=== PATIENT | female | born 1955 | race Two or more races ===

== ENCOUNTER 2016-06-28 00:10 | Inpatient (IN) | payer MEDICAID ==
--- NOTE | 2016-06-27 23:45 | NUR ---
GPS/RN NOTE: ADMITTED FROM [facility], ARRIVED TO THE UNIT AROUND 2345ACCOMPANIED BY PARAMEDICS VIA GURNEY. ADMITTED FOR DTO/DTS. PER HOLD PATIENT HAS HX OF MAJOR DEPRESSIVE DISORDER AND DEMENTIA. PATIENT IS NON COMPLIANT WITH MEDS X7 DAYS, DISORGANIZED, CONFUSED, IRRITABLE, PHYSICALLY ABUSIVE WITH FAMILY. THE 5150 HOLD WAS REVIEWED AND APPEARS TO REFLECT THE PRESENTATION OF THE PATIENT. PATIENT IS ALERT, ORIENTED X1-2, LETHARGIC, SLOW TO RESPOND, UNABLE TO ANSWER QUESTIONS COMPLETELY, CALM, DEPRESSED, COOPERATIVE, UNKEMPT. DISORGANIZED, AMBULATORY. PLACED PATIENT IN BED, COMFORTABLE, NO APPARENT DISTRESS NOTED, RESPIRATION EVEN, BREATHING PATTERN NON-LABORED WITH EQUAL RISE AND FALL OF THE CHEST. PATIENT'S SKIN IS INTACT. PATIENT IS UNDER THE PSYCHIATRIC CARE OF SHAHEEN BLANC, AND UNDER THE MEDICAL CARE OF DR. MCCRACKEN. PATIENT'S BELONGINGS WERE IMVENTORIED AND CHECKED FOR CONTRABAND. PATIENT'S ADVANCED DIRECTIVE PREFERENCE, IMMUNIZATION QUESTIONNAIRE, VALUABLES WERE CHECKED IN TO SAFE, AND NECESSARY PAPERWORK COMPLETED. PATIENT BED LOCKED AND PLACED ON LOWEST POSITION. WILL CONTINUE TO MONITOR Q 15 MINS. TO MAINTAIN SAFETY.
[~2016-06-28] VITALS: Ht 154.9 cm; Wt 46.7 kg
[2016-06-28] MEDS ORDERED: ACETAMINOPHEN 325 MG TABLET PO PRN (03:00)
[2016-06-28] MEDS ORDERED: TEMAZEPAM 7.5 MG CAPSULE PO PRN (03:00)
[2016-06-28] MEDS ORDERED: clonazePAM 0.5 MG TABLET PO PRN (03:00)
[2016-06-28] MEDS ORDERED: MAG HYDROX/AL HYDROX/SIMETH 30 ML UDC PO PRN (03:00)
[2016-06-28] MEDS ORDERED: MAGNESIUM HYDROXIDE 30 ML UDC PO PRN (03:00)
[2016-06-28] MEDS ORDERED: MEMA10TA PO (04:11)
[2016-06-28] MEDS ORDERED: MIRT15TA7 PO (04:11)
[2016-06-28 04:39] VITALS: BP 116/74
--- NOTE | 2016-06-28 07:21 | NUR ---
GPS/RN NOTE: FAMILY NOTIFIED, LEFT A MESSAGE TO DAUGHTER GALILEO THAT HER MOTHER WAS TRANSFERRED LAST NIGHT TO ROOM 200.
[2016-06-28 08:00] VITALS: BP 118/79
[2016-06-28] MEDS: MEMANTINE HCL 5 MG TABLET PO SCH ×2 (10:30→17:00)
[2016-06-28 16:25] VITALS: BP 113/71
[2016-06-28] MEDS: QUETIAPINE FUMARATE 25 MG TABLET PO SCH (17:00)
--- NOTE | 2016-06-28 18:51 | NUR ---
GPS/RN PATIENT REFUSED ALL MEDICATIONS DURING SHIFT, EXPLAINED RISKS AND BENEFITS, WILL CONTINUE TO ENCOURAGE PATIENT TO COMPLY WITH MD REGIMEN.
[2016-06-28 19:51] VITALS: BP 135/90
[2016-06-28] MEDS: MIRTAZAPINE 15 MG TABLET PO SCH (22:00)
--- NOTE | 2016-06-29 00:56 | NUR ---
Pt has been quite confused, emotionally labile, disorganized, crying most of the time, intrusive, difficult to redirect, hyperverbal, & refusing her meds.
[2016-06-29 06:47] LABS: BASOPHILS % (AUTO) 0.6 % (0.0-2.0); EOSINOPHILS # (AUTO) 0.1 /CMM (0.0-0.7); HEMATOCRIT 42 % (33-45); HEMOGLOBIN 14.4 g/dL (11.5-14.8); LYMPHOCYTES # (AUTO) 2.3 /CMM (0.8-4.8); LYMPHOCYTES % (AUTO) 33.8 % (20.0-44.0); MEAN CORPUSCULAR HEMOGLOBIN 30 PG (26.0-33.0); MEAN CORPUSCULAR HGB CONC 34 g/dl (31.0-36.0); MEAN CORPUSCULAR VOLUME 89 fL (82-100); MONOCYTES # (AUTO) 0.4 /CMM (0.1-1.30); MONOCYTES % (AUTO) 6.4 % (2.0-12.0); NEUTROPHILS # (AUTO) 3.9 /CMM (1.8-8.9); NEUTROPHILS % (AUTO) 58.2 % (43.0-81.0); PLATELET COUNT (AUTO) 335 /CMM (150-450); RED BLOOD CELL COUNT(AUTO) 4.76 MIL/uL (4.0-5.2); WHITE BLOOD COUNT (AUTO) 6.7 K/uL (4.3-11.0)
[2016-06-29 07:17] LABS: ALBUMIN 4.1 g/dL (3.4-5.0); BILIRUBIN,TOTAL 0.7 mg/dL (0.2-1.0); CALCIUM, SERUM 8.9 mg/dL (8.5-10.1); CREATININE 0.8 mg/dL (0.6-1.3); POTASSIUM 3.7 mmol/L (3.5-5.1)
[2016-06-29] MEDS: QUETIAPINE FUMARATE 25 MG TABLET PO SCH ×2 (07:54→17:19)
[2016-06-29] MEDS: MEMANTINE HCL 5 MG TABLET PO SCH ×2 (07:54→17:19)
[2016-06-29 08:00] VITALS: BP 125/85
[2016-06-29 16:00] VITALS: BP 135/80
[2016-06-29 20:00] VITALS: BP 122/71
[2016-06-29 20:11] VITALS: BP 122/71
[2016-06-29] MEDS: MIRTAZAPINE 15 MG TABLET PO SCH (21:56)
[2016-06-30 08:00] VITALS: BP 120/85
[2016-06-30] MEDS: QUETIAPINE FUMARATE 25 MG TABLET PO SCH (08:58)
[2016-06-30] MEDS: MEMANTINE HCL 5 MG TABLET PO SCH (08:58)
--- NOTE | 2016-06-30 12:07 | NUR ---
Initial Discharge Plan: Patient lives at home [place] [address] . SW spoke with patient's niece Alicia who stated that patient can return home upon discharge. SW will follow-up with MD and family regarding most appropriate discharge and will help form a safe and proper discharge.
[2016-06-30 14:00] VITALS: BP 129/74
--- NOTE | 2016-06-30 14:39 | NUR ---
GPS RN NOTES PATIENT IS 64 YEARS OLD FEMALE DISCHARGED HOME IN STABLE CONDITION. ALERT AND ORIENTED X 1. VERBALLY RESPONSIVE WITH NO COMPLAINTS OF PAIN OR DISCOMFORTS, SAME DENIES SI/HI ON DISCHARGE. INSTRUCTED TO GO TO ER FOR EMERGENCY OR DEVELOPING SI/HI. SKIN INTACT. COMPLIANT WITH MEDICATIONS AND TREATMENTS. BEHAVIOR IMPROVED, PSYCHIATRIC TX PLANS MET, MEDICAL PLANS DEFERRED FOR CONTINUAL MONITORING. PATIENT AND FAMILY EDUCATED ABOUT AFTER CARE PLAN AND COPY PROVIDED. BELONGINGS CHECKED, COUNTED AND RETURNED TO PATIENT/FAMILY. PATIENT LEFT UNIT AMBULATORY WITH FAMILY.
--- NOTE | 2016-07-01 08:22 | NUR ---
Discharge Plan: Patient was discharged back home [place] [address] . patient's niece Alicia was notified and picked her up via private vehicle. Patient denied S/H ideations and V/A hallucinations. Facilitated info to IDT team who are in agreement with discharge arrangement. The multidisciplinary exitcare form was done, printed, signed, and given to the patient.
--- NOTE | 2016-07-01 09:10 | NUR ---
Reviewed psychosocial done by Acacia Mcgraw. Addendum: 07/01/16 at 0910 by LUCILA KABA Amended: Links added.
--- NOTE | 2016-07-01 09:41 | NUR ---
Discharge Note: Patient was discharged back home to [address] [place] [id number]. Patient's niece Alicia was notified and picked her up via private vehicle. Patient and patient's niece were both agreeable with the discharge plan. Patient was calm and cooperative with appropriate mood and affect. Patient denied suicidal and homicidal ideations. Patient was provided resources to [address] [place] [address] . Niece was notified that an appointment should be made in 30 days to follow-up with a psychiatrist. Discharge instructions were provided to the niece and the patient and discharge paperwork has been signed.
== END 2016-06-30 15:00 | disposition home or self-care (01) | DRG 885 ==
LOC: GPS 02:12
PROVIDERS: ADMIT Psychiatry & Neurology Psychiatry; ATTEND Family Medicine
DX: F33.3 Major depressive disorder, recurrent, severe with psychotic symptoms (principal); F03.90 Unspecified dementia, unspecified severity, without behavioral disturbance, psychotic disturbance, mood disturbance, and anxiety; Z86.19 Personal history of other infectious and parasitic diseases; Z91.14 Patient's other noncompliance with medication regimen; M19.90 Unspecified osteoarthritis, unspecified site; F29 Unspecified psychosis not due to a substance or known physiological condition; Z79.899 Other long term (current) drug therapy; I70.90 Unspecified atherosclerosis
CPT/HCPCS: 36415; 80053-TC; 85025-TC; 87081-TC